=== PATIENT | male | born 1965 | race Caucasian/White ===

== ENCOUNTER → 2017-06-26 | Emergency (ER) | payer BC ==
[~2017-06-26] VITALS: Ht 177.8 cm; Wt 120.2 kg
[~2017-06-26] MED LIST: MECLIZINE HCL25 MG PO; ONDANSETRON ODT8 MG PO
--- NOTE | 2017-06-26 16:03 | EKG ---
[facility] [address] [facility] [place] [address] Signed Sinus bradycardia Incomplete left bundle branch block Borderline ECG No previous ECGs available Confirmed by BARBARA BECERRA MD ([id number] on 06/26/2017 4:03:12 PM Electronically Signed By: BARBARA BECERRA MD 06/26/17 1603 PATIENT NAME: CHIRAGNOAH JR Electrocardiogram DATE OF : 67 PHYSICIAN: BARBARA BECERRA MD REPORT #: [id number] REPORT IS CONFIDENTIAL AND NOT TO BE RELEASED WITHOUT AUTHORIZATION
== END ==
LOC: ED 15:06
DX: R42 Dizziness and giddiness (principal); R11.10 Vomiting, unspecified; R26.9 Unspecified abnormalities of gait and mobility; Z88.8 Allergy status to other drugs, medicaments and biological substances
CPT/HCPCS: 80053; 81001; 85025; 93005; 93010; 96360; 99284; J7030